=== PATIENT | female | born 1975 | race Caucasian/White ===

== ENCOUNTER 2016-11-29 13:33 | Emergency (ER) | payer MEDICAID ==
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
[2016-11-29] MEDS ORDERED: LORAZEPAM 0.5 MG TABLET PO ONE (14:48)
[2016-11-29 16:14] LABS: HEMATOCRIT 45.7 % (36.0-47.0); HEMOGLOBIN 15.4 g/dL (12.0-15.5); HGB HCT DIFFERENCE 0.5; MEAN CORPUSCULAR HEMOGLOBIN 27.9 pg (27.0-33.4); MEAN CORPUSCULAR HGB CONC 33.6 g/dL (32.0-36.0); MEAN CORPUSCULAR VOLUME 83 fl (80-97); RED CELL DISTRIBUTION WIDTH 13.9 % (11.5-14.0); WHITE BLOOD COUNT 21.1 10^3/uL (4.0-10.5)
[2016-11-29 16:34] LABS: BASOPHILS % (MANUAL) 1 % (0-2); EOSINOPHILS % (MANUAL) 1 % (0-6); LYMPHOCYTES % (MANUAL) 21 % (13-45); TOTAL CELLS COUNTED 100
[2016-11-29 16:35] LABS: PLATELET CLUMPS PRESENT; RBC MORPHOLOGY COMMENT NORMO-CYTIC/CHROMIC
[2016-11-29 16:37] LABS: ALANINE AMINOTRANSFERASE 42 U/L (9-52); ALBUMIN 5.3 g/dL (3.5-5.0); ALCOHOL < 10 mg/dL (NONE DETECTED); ALKALINE PHOSPHATASE 108 U/L (38-126); ANION GAP 18 (5-19); ASPARTATE AMINO TRANSFERASE 44 U/L (14-36); BILIRUBIN,TOTAL 1.2 mg/dL (0.2-1.3); BLOOD UREA NITROGEN 19 mg/dL (7-20); CALCIUM 10.5 mg/dL (8.4-10.2); CARBON DIOXIDE 19 mmol/L (22-30); CHLORIDE 103 mmol/L (98-107); CREATININE RESULT 1.05 mg/dL (0.52-1.25); GLUCOSE 124 mg/dL (75-110); POTASSIUM 4.3 mmol/L (3.6-5.0); SODIUM 139.7 mmol/L (137-145); TOTAL PROTEIN 9.3 g/dL (6.3-8.2)
[2016-11-29 17:24] LABS: APPEARANCE,URINE TURBID; BILIRUBIN,URINE NEGATIVE (NEGATIVE); GLUCOSE, URINE NEGATIVE (NEGATIVE); KETONES,URINE 20 mg/dL (NEGATIVE); LEUKOCYTE ESTERASE,URINE NEGATIVE (NEGATIVE); NITRITE,URINE NEGATIVE (NEGATIVE); PROTEIN,URINE 100 mg/dL (NEGATIVE); URINE SPECIFIC GRAVITY 1.027; UROBILINOGEN,URINE NEGATIVE mg/dL (<2.0)
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
[2016-11-29 17:44] LABS: URINE BARBITURATES SCREEN NEGATIVE; URINE METHADONE SCREEN NEGATIVE; URINE OPIATES LOW NEGATIVE; URINE PHENCYCLIDINE SCREEN NEGATIVE
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
[2016-11-29 18:00] VITALS: BP 137/88
--- NOTE | 2016-11-29 21:53 | EKG REPORT ---
SEVERITY:- NORMAL ECG - SINUS RHYTHM : Confirmed by: Sarah Van 29-Nov-2016 21:52:13
== END 2016-11-29 18:07 | disposition home or self-care (01) ==
LOC: ER 13:33
DX: F41.9 Anxiety disorder, unspecified (principal); F17.200 Nicotine dependence, unspecified, uncomplicated; Z88.5 Allergy status to narcotic agent; Z88.6 Allergy status to analgesic agent; Z88.8 Allergy status to other drugs, medicaments and biological substances
CPT/HCPCS: 36415; 80053; 80307; 81001; 84703; 85025; 93005; 93010; 99284

== ENCOUNTER 2017-07-05 13:49 | Emergency (ER) | payer MEDICAID, OTHER ==
[2017-07-05 14:24] VITALS: BP 135/86
[2017-07-05] MEDS ORDERED: PROCHLORPERAZINE MALEATE 10 MG TABLET PO ONE (14:42)
[2017-07-05] MEDS ORDERED: PREDNISONE 20 MG TABLET PO ONE (14:42)
[2017-07-05] MEDS ORDERED: DIPHENHYDRAMINE HCL 25 MG CAPSULE PO ONE (14:42)
--- NOTE | 2017-07-05 14:52 | ER Document Report ---
HPI - HPI Patient complains to provider of: migraine Onset: Other Onset/Duration: Sudden Quality of pain: Throbbing Severity: Severe Pain Level: 5 Context: Patient states she has had a headache for 3 days with intermittent vomiting. Has had similar episodes in the past as she has a history of migraines. This is not the worst headache she has ever had. Patient received a phone call from her son's ride home from school stating that she would not be able to pick him up. Patient states she has Aleve at this time, and after discussing this with her, she agrees to some oral medications prior to being discharged. Associated Symptoms: Headache, Nausea, Vomiting Exacerbated by: Denies Relieved by: Denies Similar symptoms previously: Yes Recently seen / treated by doctor: No - ROS ROS below otherwise negative: Yes Systems Reviewed and Negative: Yes All other systems reviewed and negative - CONSTITUTIONAL Constitutional: DENIES: Fever - EENT EENT: DENIES: Congestion - NEURO Neurology: REPORTS: Headache - CARDIOVASCULAR Cardiovascular: DENIES: Chest pain - RESPIRATORY Respiratory: DENIES: Trouble Breathing - GASTROINTESTINAL Gastrointestinal: REPORTS: Nausea, Patient vomiting. DENIES: Abdominal Pain - REPRODUCTIVE Reproductive: DENIES: : - MUSCULOSKELETAL Musculoskeletal: DENIES: Extremity pain - DERM Skin Color: Normal Past Medical History - General Information source: Patient - Social History Smoking Status: Current Every Day Smoker Frequency of alcohol use: None Drug Abuse: None Lives with: Family Family History: Reviewed & Not Pertinent, Hypertension Patient has suicidal ideation: No Patient has homicidal ideation: No Neurological Medical History: Reports: Hx Migraine Psychiatric Medical History: Reports: Hx Anxiety, Hx Attention Deficit Hyperactivity Disorder, Hx Bipolar Disorder, Hx Depression Infectious Medical History: Denies: Hx Hepatitis Past Surgical History: Reports: Hx Appendectomy, Hx Cholecystectomy, Hx Gynecologic Surgery - Laparoscopy x2 - Immunizations Immunizations up to date: Yes Hx Diphtheria, Pertussis, Tetanus Vaccination: Yes - unk Vertical Provider Document - CONSTITUTIONAL Agree With Documented VS: Yes Exam Limitations: No Limitations General Appearance: WD/WN, Mild Distress - INFECTION CONTROL TRAVEL OUTSIDE OF THE U.S. IN LAST 30 DAYS: No - HEENT HEENT: Atraumatic, Normal ENT Exam, Normocephalic, PERRLA - NECK Neck: Normal Inspection - RESPIRATORY Respiratory: Breath Sounds Normal, No Respiratory Distress O2 Sat by Pulse Oximetry: 97 - CARDIOVASCULAR Cardiovascular: Regular Rate, Regular Rhythm - GI/ABDOMEN Gastrointestinal: Abdomen Soft, Abdomen Tender - Mild epigastric tenderness on palpation - MUSCULOSKELETAL/EXTREMETIES Musculoskeletal/Extremeties: MAEW - NEURO Level of Consciousness: Awake, Alert, Appropriate Notes: Cranial nerves grossly intact - DERM Integumentary: Warm, Dry Course - Vital Signs Vital signs: Temp Pulse Resp BP Pulse Ox 97.8 F 94 14 135/86 H 97 07/05/17 14:22 07/05/17 14:22 07/05/17 14:22 07/05/17 14:07/05/17 14:22 Discharge - Discharge Clinical Impression: Migraine Qualifiers: Migraine type: unspecified Status migrainosus presence: without status migrainosus Intractability: not intractable Qualified Code(s): G43.909 - Migraine, unspecified, not intractable, without status migrainosus Condition: Good Disposition: HOME, SELF-CARE Instructions: Antinausea Medication ([facility]), Headache ([facility]) Additional Instructions: You have been given oral medications for your headache as you have to leave and pick her son up. Return if not relieved with medications given or if symptoms worsen. Prescriptions: Ondansetron [Zofran Odt 4 mg Tablet] 1 - 2 tab PO Q4HP PRN #10 tab.rapdis PRN Reason:
== END 2017-07-05 15:08 | disposition home or self-care (01) ==
LOC: ER 13:49
DX: G43.909 Migraine, unspecified, not intractable, without status migrainosus (principal); R11.2 Nausea with vomiting, unspecified; F17.200 Nicotine dependence, unspecified, uncomplicated; Z90.49 Acquired absence of other specified parts of digestive tract
CPT/HCPCS: 99283; J3490; J7512; S0183

== ENCOUNTER 2017-11-11 19:40 | Inpatient (IN) | payer SELFPAY ==
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
[2017-11-11 21:51] LABS: ABSOLUTE BASOPHILS # (AUTO) 0.1 10^3/uL (0.0-0.2); ABSOLUTE LYMPHOCYTES (AUTO) 5.6 10^3/uL (0.5-4.7); ABSOLUTE MONOCYTES (AUTO) 0.8 10^3/uL (0.1-1.4); ABSOLUTE NEUT (AUTO) 9.7 10^3/uL (1.7-8.2); BASOPHILS % (AUTO) 0.3 % (0-2); EOSINOPHILS % (AUTO) 0.3 % (0-6); HEMATOCRIT 43.7 % (36.0-47.0); HEMOGLOBIN 14.8 g/dL (12.0-15.5); LYMPHOCYTES % (AUTO) 34.4 % (13-45); MEAN CORPUSCULAR HEMOGLOBIN 28.6 pg (27.0-33.4); MEAN CORPUSCULAR HGB CONC 33.8 g/dL (32.0-36.0); MEAN CORPUSCULAR VOLUME 84 fl (80-97); MONOCYTES % (AUTO) 5.1 % (3-13); PLATELET COUNT 357 10^3/uL (150-450); RED BLOOD COUNT 5.17 10^6/uL (3.72-5.28); RED CELL DISTRIBUTION WIDTH 13.1 % (11.5-14.0); SEGMENTED NEUTROPHILS % (AUTO) 59.9 % (42-78); TOTAL CELLS COUNTED % (AUTO) 100 %; WHITE BLOOD COUNT 16.2 10^3/uL (4.0-10.5)
[2017-11-11 22:07] LABS: APPEARANCE,URINE CLEAR; BILIRUBIN,URINE NEGATIVE (NEGATIVE); COLOR,URINE STRAW; GLUCOSE, URINE NEGATIVE (NEGATIVE); KETONES,URINE NEGATIVE (NEGATIVE); LEUKOCYTE ESTERASE,URINE NEGATIVE (NEGATIVE); NITRITE,URINE NEGATIVE (NEGATIVE); PROTEIN,URINE NEGATIVE (NEGATIVE); URINE SPECIFIC GRAVITY 1.002; UROBILINOGEN,URINE NEGATIVE mg/dL (<2.0)
[2017-11-11 22:14] LABS: ALANINE AMINOTRANSFERASE 27 U/L (9-52); ALKALINE PHOSPHATASE 88 U/L (38-126); ANION GAP 15 (5-19); ASPARTATE AMINO TRANSFERASE 22 U/L (14-36); BILIRUBIN,DIRECT 0.3 mg/dL (0.0-0.4); BILIRUBIN,TOTAL 0.5 mg/dL (0.2-1.3); BLOOD UREA NITROGEN 5 mg/dL (7-20); CALCIUM 10.3 mg/dL (8.4-10.2); CARBON DIOXIDE 24 mmol/L (22-30); CHLORIDE 106 mmol/L (98-107); GLUCOSE 101 mg/dL (75-110); SODIUM 145.1 mmol/L (137-145); TOTAL PROTEIN 8.4 g/dL (6.3-8.2)
[2017-11-11 22:16] LABS: ACETAMINOPHEN < 10 ug/mL (10-30); ALCOHOL < 10 mg/dL (NONE DETECTED); SALICYLATE < 1.0 mg/dL (2.0-20.0)
[2017-11-11 22:28] LABS: URINE AMPHETAMINES SCREEN UNCONFIRMED POSITIVE; URINE BARBITURATES SCREEN NEGATIVE; URINE BENZODIAZEPINES SCREEN NEGATIVE; URINE COCAINE SCREEN NEGATIVE; URINE MARIJUANA (THC) SCREEN UNCONFIRMED POSITIVE; URINE METHADONE SCREEN NEGATIVE; URINE PHENCYCLIDINE SCREEN NEGATIVE
[2017-11-12 00:16] LABS: ARTERIAL BLOOD BASE EXCESS -0.9 mmol/L; ARTERIAL BLOOD H2CO3 1.12 mmol/L (1.05-1.35); ARTERIAL BLOOD HCO3 23.3 mmol/L (20-26); ARTERIAL BLOOD O2 SATURATION 96.8 % (94-98); ARTERIAL BLOOD PCO2 37.2 mmHg (35-45); ARTERIAL BLOOD PH 7.41 (7.35-7.45); ARTERIAL BLOOD PO2 87.2 mmHg (80-100); ARTERIAL BLOOD TOTAL CO2 24.4 mmol/L (21-25)
[2017-11-12 00:17] LABS: ARTERIAL BLOOD FIO2 2L
[2017-11-12] MEDS ORDERED: GLUCAGON,HUMAN RECOMB 1 MG INJ SUBCUT PRN (00:54)
[2017-11-12] MEDS ORDERED: DEXTROSE 50%-WATER 25 GM/50 ML DISP.SYRIN IV PRN ×2 (00:54)
[2017-11-12] MEDS ORDERED: DEXTROSE 5%-LACTATED RINGERS 1,000 ML IV PRN (00:54)
[2017-11-12] MEDS ORDERED: DEXTROSE 40% GEL 15 GM TUBE PO PRN ×2 (00:54)
--- NOTE | 2017-11-12 01:23 | PDOC H&P ---
History of Present Illness Admission Date/PCP: 11/12/17 00:39 Patient complains of: Taking medicine in order not to go to group home History of Present Illness: ROSANA ORTIZ is a 42 year old female who has been remanded to group home. Apparently she took an excess of clonidine tablets. She was brought to the emergency room due to lethargy. Upon arrival here patient was lethargic but arousable. Arterial blood gases were acceptable without hypercapnia. Electrocardiogram showed the development of AV block suggestive of clonidine overdose. Patient was then admitted to our care and transferred to our intensive care unit. It should be noted that the patient says she takes Adderall at home as part of her therapy for PTSD Past Medical History Cardiac Medical History: Reports: None Pulmonary Medical History: Reports: None EENT Medical History: Reports: None Neurological Medical History: Reports: Migraine Endocrine Medical History: Reports: None Renal/ Medical History: Reports: None Malignancy Medical History: Reports: None GI Medical History: Reports: None Denies: Hepatitis, Hiatal Hernia Musculoskeltal Medical History: Reports: None Psychiatric Medical History: Reports: Attention Deficit Hyperactivity Disorder, Bipolar Disorder, Depression Hematology: Denies: Anemia, Sickle Cell Disease Past Surgical History Past Surgical History: Reports: Appendectomy, Cholecystectomy Denies: Amputation, Mastectomy, Pacemaker Social History Lives with: Alone Smoking Status: Current Every Day Smoker - Advance Directive Resuscitation Status: Full Code Family History Family History: Reviewed & Not Pertinent, Hypertension Parental Family History Reviewed: No - Patient lethargic Children Family History Reviewed: No - Patient lethargic Sibling(s) Family History Reviewed.: No - Patient lethargic Medication/Allergy Home Medications: Doxycycline Hyclate 100 mg PO BID #20 capsule 01/01/16 Oxycodone HCl [Oxycodone HCl 10 MG Tablet] 1 tab PO Q6H PRN #15 tablet 01/01/16 Oxycodone HCl 5 mg PO Q6 #12 tablet 01/08/16 Albuterol Sulfate [Proair HFA Inhalation Aerosol 8.5 gm MDI] 2 puff IH Q4H PRN # 1 mdi 03/26/16 Azithromycin [Zithromax 250 mg Tablet] 250 mg PO ASDIR PRN #6 tablet 03/26/16 Hydroxyzine Pamoate [Vistaril 25 mg Capsule] 25 mg PO DAILY #4 capsule 11/29/16 Ondansetron [Zofran Odt 4 mg Tablet] 1 - 2 tab PO Q4HP PRN #10 tab.rapdis Allergies/Adverse Reactions: acetaminophen [From Vicodin] Allergy (Verified 07/05/17 14:22) aspirin [Aspirin] Allergy (Verified 07/05/17 14:22) hydrocodone bitartrate [From Vicodin] Allergy (Verified 07/05/17 14:22) risperidone [From Risperdal] Allergy (Verified 07/05/17 14:22) Review of Systems ROS unobtainable: Due to mental status Physical Exam Vital Signs: Temp Pulse Resp BP Pulse Ox 97.6 F 81 15 108/83 98 11/11/17 19:51 11/11/17 19:51 11/12/17 00:18 11/12/17 00:18 11/12/17 00:18 General appearance: PRESENT: no acute distress, cooperative - When aroused Head exam: PRESENT: atraumatic, normocephalic Eye exam: PRESENT: conjunctiva pink, EOMI, PERRLA. ABSENT: scleral icterus Ear exam: PRESENT: normal external ear exam Neck exam: ABSENT: carotid bruit, JVD, lymphadenopathy, thyromegaly Respiratory exam: PRESENT: clear to auscultation lyle. ABSENT: rales, rhonchi, wheezes Cardiovascular exam: PRESENT: RRR. ABSENT: diastolic murmur, rubs, systolic murmur GI/Abdominal exam: PRESENT: normal bowel sounds, soft. ABSENT: distended, guarding, mass, organolmegaly, rebound, tenderness Rectal exam: PRESENT: deferred Musculoskeletal exam: PRESENT: normal inspection Neurological exam: PRESENT: altered, CN II-XII grossly intact Skin exam: PRESENT: dry, intact, warm. ABSENT: cyanosis, rash Results Laboratory Results: 11/11/17 11/11/17 11/11/17 21:37 21:37 21:37 WBC 16.2 H Hgb 14.8 Hct 43.7 ABG pH ABG pCO2 ABG pO2 ABG HCO3 Sodium 145.1 H Potassium 4.0 Chloride 106 Carbon Dioxide 24 Anion Gap 15 BUN 5 L Creatinine 0.68 Glucose 101 Calcium 10.3 H AST 22 ALT 27 Alkaline Phosphatase 88 Total Protein 8.4 H Albumin 5.0 Ur Leukocyte Esterase NEGATIVE Urine WBC (Auto) 0 Salicylates < 1.0 L Acetaminophen < 10 L Ur Amphetamines Screen U Marijuana (THC) Screen Serum Alcohol < 10 11/11/17 11/12/17 21:37 00:04 WBC Hgb Hct ABG pH 7.41 ABG pCO2 37.2 ABG pO2 87.2 ABG HCO3 23.3 Sodium Potassium Chloride Carbon Dioxide Anion Gap BUN Creatinine Glucose Calcium AST ALT Alkaline Phosphatase Total Protein Albumin Ur Leukocyte Esterase Urine WBC (Auto) Salicylates Acetaminophen Ur Amphetamines Screen UNCONFIRMED POSITIVE U Marijuana (THC) Screen UNCONFIRMED POSITIVE Serum Alcohol EKG Comments: First-degree AV block Assessment & Plan - Diagnosis (1) Accidental poisoning by agents affecting cardiovascular system Qualifiers: Encounter type: initial encounter Qualified Code(s): T46.901A - Poisoning by unspecified agents primarily affecting the cardiovascular system, accidental (unintentional), initial encounter Is this a current diagnosis for this admission?: Yes (2) Clonidine overdose Qualifiers: Encounter type: initial encounter Injury intent: accidental or unintentional Qualified Code(s): T46.5X1A - Poisoning by other antihypertensive drugs, accidental (unintentional), initial encounter Is this a current diagnosis for this admission?: Yes (3) Attention deficit disorder (ADD) in adult Is this a current diagnosis for this admission?: Yes (4) Hypotension Qualifiers: Hypotension type: hypotension due to drug Qualified Code(s): I95.2 - Hypotension due to drugs Is this a current diagnosis for this admission?: Yes - Time Time Spent: 30 to 50 Minutes Critical Time spent with patient: 15-24 minutes Medications reviewed and adjusted accordingly: Yes - Inpatient Certification Based on my medical assessment, after consideration of the patient's comorbidities, presenting symptoms, or acuity I expect that the services needed warrant INPATIENT care.: Yes I certify that my determination is in accordance with my understanding of Medicare's requirements for reasonable and necessary INPATIENT services [42 CFR 412.3e].: Yes Medical Necessity: Need Close Monitoring Due to Risk of Patient Decompensation, Need For IV Fluids, Need For Continuous Telemetry Monitoring - Plan Summary Plan Summary: Her clinical picture is consistent with poisoning due to clonidine. Apparently this was unintentional. We will provide supportive care for her. She will be admitted to intensive care in case it may be necessary to intubate her or to start pressor agents. Apparently her amphetamines are prescribed and do not represent substance abuse. Patient will receive DVT prophylaxis with low molecular weight heparin Anticipated length of stay is greater than 2 midnights
[2017-11-12] MEDS: NORMAL SALINE 1000 ML 1,000 ML IV PRN ×2 (03:42→06:30)
[2017-11-12] MEDS ORDERED: ENOXAPARIN SODIUM INJ 40 MG/0.4 ML DISP.SYRIN SUBCUT SCH (10:00)
[2017-11-12] MEDS ORDERED: DOCUSATE SODIUM 100 MG CAPSULE PO SCH (10:00)
[2017-11-12] MEDS ORDERED: FAMOTIDINE 20 MG TABLET PO SCH (10:00)
[2017-11-12 11:49] VITALS: BP 109/67
--- NOTE | 2017-11-12 15:25 | PDOC DISCHARGE SUMMARY ---
General - Admit/Disc Date/PCP Admission Date/Primary Care Provider: 11/12/17 00:39 Discharge Date: 11/12/17 - Discharge Diagnosis (1) Encephalopathy acute Is this a current diagnosis for this admission?: Yes (3) Attention deficit disorder (ADD) in adult Is this a current diagnosis for this admission?: Yes (4) Hypotension Is this a current diagnosis for this admission?: Yes (5) AV block Is this a current diagnosis for this admission?: Yes - Additional Information Resuscitation Status: Full Code Home Medications: Clonazepam [Klonopin 1 mg Tablet] 1 mg PO TID 11/12/17 Dextroamphetamine/Amphetamine [Adderall Xr 30 mg Capsule] 30 mg PO DAILY Escitalopram Oxalate [Lexapro] 20 mg PO DAILY 11/12/17 Quetiapine Fumarate [Seroquel] 300 mg PO TID 11/12/17 Zolpidem Tartrate [Ambien] 10 mg PO QHS 11/12/17 History of Present Illness History of Present Illness: ROSANA ORTIZ is a 42 year old female who has been [facility] jail[facility] due to marijuana position. Apparently she took an excess of clonidine tablets. She was brought to the emergency room due to lethargy. Upon arrival here patient was lethargic but arousable. Arterial blood gases were acceptable without hypercapnia. Electrocardiogram showed the development of AV block suggestive of clonidine overdose. Patient was then admitted under the hospitalist service. Hospital Course Hospital Course: Patient was admitted under the hospitalist service. Upon further inquiring, she stated that she took an extra dose of Seroquel because she was going to senior care and wanted to sleep. She is currently under stress because the anniversary of her daughter is coming soon on November 27. She denied being suicidal. Patient denies taking any medications for blood pressure. She is mandated to go to senior care during the weekends because of marijuana position on several locations. Patient had remained stable while in emergency room. Initial concerns of an AV block are easily explain because of patient taking Seroquel on a regular basis. Since patient was no longer drowsy and blood pressure was stable, opted to proceed to discharge patient. Physical Exam Vital Signs: Temp Pulse Resp BP Pulse Ox 97.6 F 81 14 107/70 98 11/11/17 19:51 11/11/17 19:51 11/12/17 08:03 11/12/17 08:03 11/12/17 08:03 Intake & Output 11/11/17 11/12/17 11/13/17 06:59 06:59 06:59 Weight 63.503 kg General appearance: PRESENT: no acute distress, cooperative, obese Head exam: PRESENT: atraumatic, normocephalic Eye exam: PRESENT: EOMI, PERRLA Ear exam: PRESENT: normal external ear exam Mouth exam: PRESENT: moist, neck supple Neck exam: PRESENT: full ROM. ABSENT: JVD, lymphadenopathy, tenderness, thyromegaly Respiratory exam: PRESENT: clear to auscultation lyle Cardiovascular exam: PRESENT: RRR. ABSENT: diastolic murmur, systolic murmur Vascular exam: PRESENT: normal capillary refill GI/Abdominal exam: PRESENT: normal bowel sounds, soft. ABSENT: tenderness Extremities exam: PRESENT: full ROM. ABSENT: clubbing, pedal edema Musculoskeletal exam: PRESENT: ambulatory, full ROM Neurological exam: PRESENT: alert, awake, oriented to person, oriented to place , oriented to time, oriented to situation, CN II-XII grossly intact Psychiatric exam: PRESENT: appropriate affect, normal mood Skin exam: PRESENT: intact, normal color Plan Discharge Plan: Discharge home Time Spent: Less than 30 Minutes
--- NOTE | 2017-11-13 12:03 | EKG REPORT ---
SEVERITY:- ABNORMAL ECG - ATRIAL FIBRILLATION : Confirmed by: Kirti Esqueda MD 13-Nov-2017 12:02:21
--- NOTE | 2017-11-16 08:13 | EKG REPORT ---
SEVERITY:- BORDERLINE ECG - SINUS RHYTHM POOR R WAVE PROGRESSION ANTEROSEPTAL LEADS : Confirmed on behalf of: Gallo Womack MD 16-Nov-2017 08:12:28
== END 2017-11-12 11:56 | disposition home or self-care (01) | DRG 917 ==
LOC: ER 19:40 → EH 11-12 00:39
PROVIDERS: ADMIT Internal Medicine; ATTEND Internal Medicine
DX: T46.5X1A Poisoning by other antihypertensive drugs, accidental (unintentional), initial encounter (principal); G93.40 Encephalopathy, unspecified; F98.8 Other specified behavioral and emotional disorders with onset usually occurring in childhood and adolescence; I95.9 Hypotension, unspecified; I44.30 Unspecified atrioventricular block; F31.9 Bipolar disorder, unspecified; G43.909 Migraine, unspecified, not intractable, without status migrainosus; F17.210 Nicotine dependence, cigarettes, uncomplicated; I95.2 Hypotension due to drugs; F41.9 Anxiety disorder, unspecified; R47.81 Slurred speech; Z60.2 Problems related to living alone; Z79.899 Other long term (current) drug therapy; Z90.49 Acquired absence of other specified parts of digestive tract; Z88.6 Allergy status to analgesic agent; Z88.8 Allergy status to other drugs, medicaments and biological substances; Z82.49 Family history of ischemic heart disease and other diseases of the circulatory system
CPT/HCPCS: 36415; 80053; 80307; 81001; 81025; 82803; 85025; 93005; 93010; 99291; J7030

== ENCOUNTER 2018-01-18 09:17 | Emergency (ER) | payer SELFPAY ==
[2018-01-18] MEDS ORDERED: DICYCLOMINE HCL 20 MG TABLET PO ONE (10:12)
[2018-01-18] MEDS ORDERED: ONDANSETRON 4 MG TAB.RAPDIS PO ONE (10:12)
--- NOTE | 2018-01-18 10:15 | ER Document Report ---
ED Medical Screen (RME) - General Chief Complaint: Vomiting/Diarrhea Stated Complaint: NAUSEA/VOMITING/DIARRHEA Time Seen by Provider: 01/18/18 10:11 Notes: RME DISCLOSURE I have seen this patient as part of a Rapid Medical Evaluation and, if applicable, placed any initially appropriate orders. The patient will be seen and fully evaluated, including a full history and physical exam, by a provider ( in Main ED or Fast Track) when a room becomes available. 42-year-old female here with multiple complaints: DIARRHEA (ACUTE) Started last night, multiple episodes, watery. No known sick contacts. No fevers. VOMITING and RIB MASS (CHRONIC) Ongoing for the past 1 year. She states that she "vomits all the time". She no longer has a gallbladder. She has been smoking marijuana for the vomiting. She also reports that she has a "something pops out of my stomach" on the right side just underneath her rib cage. States that this happens frequently especially when she is stressed out. She does not currently have this mass. TRAVEL OUTSIDE OF THE [place] IN LAST 30 DAYS: No - Related Data Allergies/Adverse Reactions: acetaminophen [From Vicodin] Allergy (Verified 01/18/18 09:23) aspirin [Aspirin] Allergy (Verified 01/18/18 09:23) hydrocodone bitartrate [From Vicodin] Allergy (Verified 01/18/18 09:23) risperidone [From Risperdal] Allergy (Verified 01/18/18 09:23) Past Medical History Neurological Medical History: Reports: Hx Migraine Renal/ Medical History: Denies: Hx Peritoneal Dialysis GI Medical History: Denies: Hx Hepatitis, Hx Hiatal Hernia, Hx Ulcer Psychiatric Medical History: Reports: Hx Anxiety, Hx Attention Deficit Hyperactivity Disorder, Hx Bipolar Disorder, Hx Depression Infectious Medical History: Denies: Hx Hepatitis Past Surgical History: Reports: Hx Appendectomy, Hx Cholecystectomy, Hx Gynecologic Surgery - Laparoscopy x2. Denies: Hx Mastectomy, Hx Open Heart Surgery, Hx Pacemaker - Immunizations Immunizations up to date: Yes Hx Diphtheria, Pertussis, Tetanus Vaccination: Yes - unk Physical Exam - Vital signs Vitals: Temp Pulse Resp BP Pulse Ox 97.9 F 90 18 148/86 H 97 01/18/18 09:27 01/18/18 09:27 01/18/18 09:27 01/18/18 09:27 01/18/18 09:27 Course - Vital Signs Vital signs: Temp Pulse Resp BP Pulse Ox 97.9 F 90 18 148/86 H 97 01/18/18 09:27 01/18/18 09:27 01/18/18 09:27 01/18/18 09:27 01/18/18 09:27
[2018-01-18] MEDS ORDERED: HALOPERIDOL LACTATE INJ 5 MG/1 ML VIAL IV ONE (11:13)
--- NOTE | 2018-01-18 11:13 | ER Document Report ---
ED General - General Chief Complaint: Vomiting/Diarrhea Stated Complaint: NAUSEA/VOMITING/DIARRHEA Time Seen by Provider: 01/18/18 10:11 Notes: 42-year-old lady with a history of cholecystectomy and daily marijuana smoking presents with "it feels like someone sticking a fist up on her right rib cage intermittently" she describes it as a mass associated with nausea vomiting. Last night she had a bout of vomiting and diarrhea which is improved today but is still described as moderate although she has not vomited or had diarrhea in the ER. Smokes marijuana daily. Has not tried quitting. No fevers or chills. No antibiotics or foreign travel. TRAVEL OUTSIDE OF THE [place] IN LAST 30 DAYS: No - Related Data Allergies/Adverse Reactions: acetaminophen [From Vicodin] Allergy (Verified 01/18/18 09:23) aspirin [Aspirin] Allergy (Verified 01/18/18 09:23) hydrocodone bitartrate [From Vicodin] Allergy (Verified 01/18/18 09:23) risperidone [From Risperdal] Allergy (Verified 01/18/18 09:23) Past Medical History - Social History Smoking Status: Current Every Day Smoker Chew tobacco use (# tins/day): No Smoking Education Provided: Yes - The patient ED visit today was directly related to their abuse of tobacco. Frequency of alcohol use: Rare Drug Abuse: Marijuana Family History: Reviewed & Not Pertinent, Hypertension Patient has suicidal ideation: No Patient has homicidal ideation: No Neurological Medical History: Reports: Hx Migraine Renal/ Medical History: Denies: Hx Peritoneal Dialysis GI Medical History: Denies: Hx Hepatitis, Hx Hiatal Hernia, Hx Ulcer Psychiatric Medical History: Reports: Hx Anxiety, Hx Attention Deficit Hyperactivity Disorder, Hx Bipolar Disorder, Hx Depression Infectious Medical History: Denies: Hx Hepatitis Past Surgical History: Reports: Hx Appendectomy, Hx Cholecystectomy, Hx Gynecologic Surgery - Laparoscopy x2. Denies: Hx Mastectomy, Hx Open Heart Surgery, Hx Pacemaker - Immunizations Immunizations up to date: Yes Hx Diphtheria, Pertussis, Tetanus Vaccination: Yes - unk Review of Systems - Review of Systems Notes: REVIEW OF SYSTEMS GEN: Denies fever, chills, weight loss ENT: Denies sore throat, nasal discharge, ear pain EYES: Denies blurry vision, eye pain, discharge CV: Denies chest pain, palpitations, edema RESP: Denies cough, shortness of breath, wheezing GI: Vomiting and diarrhea Musculoskeletal: Denies enies joint pain/swelling, edema, SKIN: Denies rash, skin lesions LYMPH: Denies swollen glands/lymph nodes NEURO: Denies headache, focal weakness or numbness, dizziness PSYCH: Denies depression, suicidal or homicidal ideation PHYSICAL EXAMINATION General: No acute distress, well-nourished Head: Atraumatic, normocephalic ENT: Mouth normal, oropharynx moist, no exudates or tonsillar enlargement Eyes: Conjunctiva normal, pupils equal, lids normal Neck: No JVD, supple, no guarding CVS: Normal rate, regular rhythm, no murmurs Resp: No resp distress, equal and normal breath sounds bilaterally GI: Nondistended, soft, no tenderness to palpation, no rebound or guarding Ext: No deformities, no edema, normal range of motion in upper and lower ext Back: No CVA or midline TTP Skin: No rash, warm Lymphatic: No lymphadeopathy noted Neuro: Awake, alert. Face symmetric. GCS 15. Physical Exam - Vital signs Vitals: Temp Pulse Resp BP Pulse Ox 97.9 F 90 18 148/86 H 97 01/18/18 09:27 01/18/18 09:27 01/18/18 09:27 01/18/18 09:27 01/18/18 09:27 Course - Re-evaluation Re-evalutation: 01/18/18 11:13 Recurrent vomiting diarrhea Marijuana smoking Abdominal tenderness Wilson's or right lower quadrant tenderness. History of colostomy. Suspect gastritis gastroenteritis or cyclic vomiting. Haldol Benadryl, lab workup, no imaging is indicated at this time. 01/18/18 13:31 Reassessed at 1:20 PM. Nontender. White count is significantly elevated however so I will obtain a CT. 01/18/18 14:21 CT negative. Tolerated p.o. Discharge home with [facility]. Counseled on marijuana use and cannabinoid hyperemesis as well as cyclic vomiting. I have discussed with the patient there likely diagnosis, aftercare plan, follow-up plans and my usual and customary return precautions. They verbalized understanding of this. - Vital Signs Vital signs: Temp Pulse Resp BP Pulse Ox 97.9 F 90 18 148/86 H 97 01/18/18 09:27 01/18/18 09:27 01/18/18 09:27 01/18/18 09:27 01/18/18 09:27 - Laboratory Result Diagrams: 01/18/18 11:51 01/18/18 11:51 Laboratory results interpreted by me: 01/18/18 01/18/18 10:25 11:51 WBC 17.6 H RDW 14.2 H Absolute Neutrophils 11.3 H Absolute Lymphocytes 5.5 H Urine Protein 30 H Urine Ketones 20 H - Diagnostic Test Radiology reviewed: Image reviewed, Reports reviewed Discharge - Discharge Clinical Impression: Nausea vomiting and diarrhea Condition: Good Disposition: HOME, SELF-CARE Instructions: Antinausea Medication ([facility]) Additional Instructions: Is very likely that your recurrent episodes of vomiting are due to marijuana use. Please slow down and stop her marijuana use and this may result in resolution of her symptoms. Prescriptions: Ondansetron [Zofran Odt 4 mg Tablet] 1 - 2 tab PO Q4H PRN #15 tab.rapdis PRN Reason: For Nausea/Vomiting
[2018-01-18 12:03] LABS: ABSOLUTE BASOPHILS # (AUTO) 0.2 10^3/uL (0.0-0.2); ABSOLUTE LYMPHOCYTES (AUTO) 5.5 10^3/uL (0.5-4.7); ABSOLUTE MONOCYTES (AUTO) 0.6 10^3/uL (0.1-1.4); ABSOLUTE NEUT (AUTO) 11.3 10^3/uL (1.7-8.2); EOSINOPHILS % (AUTO) 0.1 % (0-6); HEMATOCRIT 43.9 % (36.0-47.0); MEAN CORPUSCULAR HEMOGLOBIN 28.5 pg (27.0-33.4); MEAN CORPUSCULAR HGB CONC 34.1 g/dL (32.0-36.0); MEAN CORPUSCULAR VOLUME 84 fl (80-97); MONOCYTES % (AUTO) 3.6 % (3-13); PLATELET COUNT 355 10^3/uL (150-450); RED BLOOD COUNT 5.26 10^6/uL (3.72-5.28); RED CELL DISTRIBUTION WIDTH 14.2 % (11.5-14.0); SEGMENTED NEUTROPHILS % (AUTO) 64.3 % (42-78); TOTAL CELLS COUNTED % (AUTO) 100 %; WHITE BLOOD COUNT 17.6 10^3/uL (4.0-10.5)
[2018-01-18 12:10] LABS: APPEARANCE,URINE SLIGHTLY-CLOUDY; BILIRUBIN,URINE NEGATIVE (NEGATIVE); COLOR,URINE YELLOW; GLUCOSE, URINE NEGATIVE (NEGATIVE); KETONES,URINE 20 mg/dL (NEGATIVE); LEUKOCYTE ESTERASE,URINE NEGATIVE (NEGATIVE); NITRITE,URINE NEGATIVE (NEGATIVE); PROTEIN,URINE 30 mg/dL (NEGATIVE); URINE SPECIFIC GRAVITY 1.024; UROBILINOGEN,URINE NEGATIVE mg/dL (<2.0)
--- NOTE | 2018-01-18 14:20 | RADIOLOGY REPORT (SQ) ---
EXAM DESCRIPTION: CT ABD/PELVIS WITH IV ONLY COMPLETED DATE/TIME: 01/18/2018 2:01 pm REASON FOR STUDY: ABD PAIN COMPARISON: CT abdomen pelvis 12/22/2015, 11/17/2009 TECHNIQUE: CT scan of the abdomen and pelvis performed using helical scanning technique with dynamic intravenous contrast injection. No oral contrast. Images reviewed with lung, soft tissue, and bone windows. Reconstructed coronal and sagittal MPR images reviewed. Delayed images for evaluation of the urinary system also acquired. All images stored on PACS. All CT scanners at this facility use dose modulation, iterative reconstruction, and/or weight based d osing when appropriate to reduce radiation dose to as low as reasonably achievable (ALARA). [facility]: Dose Right [facility]: CareDose [facility]: Dose Right [facility]: Teradose 4D [facility]: ECO-SAFE CONTRAST TYPE AND DOSE: contrast/concentration: Isovue 370.00 mg/ml; Total Contrast Delivered: 76.0 ml; Total Saline Delivered: 50.1 ml RENAL FUNCTION: None required. The patient is less than 50 years old. RADIATION DOSE: CT Rad equipment meets quality standard of care and radiation dose reduction techniq ues were employed. CTDIvol: NaN - NaN mGy. DLP: 0 mGy-cm.. LIMITATIONS: None. FINDINGS: LOWER CHEST: Small hiatal hernia. Bilateral bandlike atelectasis at the lung bases LIVER: Normal size. No masses. No dilated ducts. SPLEEN: Normal size. No focal lesions. PANCREAS: No masses. No significant calcifications. No adjacent inflammation or peripancreatic fluid collections. Pancreatic duct not dilated. Periampullary duodenum diverticulum is present. GALLBLADDER: Surgically absent ADRENAL GLANDS: No significant masses or asymmetry. RIGHT KIDNEY AND URETER: No solid masses. No significant calcifications. No hydronephrosis or hyd roureter. LEFT KIDNEY AND URETER: No solid masses. 1.5 cm and 1 cm left lower pole renal cortical cysts. No s ignificant calcifications. No hydronephrosis or hydroureter. AORTA AND VESSELS: No aneurysm. No dissection. Renal arteries, SMA, celiac without stenosis. RETROPERITONEUM: No retroperitoneal adenopathy, hemorrhage or masses. BOWEL AND PERITONEAL CAVITY: No masses or inflammatory changes. No free fluid or peritoneal masses. APPENDIX: Surgically absent PELVIS: No mass. No free fluid. Normal bladder. Normal size female pelvic organs. ABDOMINAL WALL: No masses. No hernias. BONES: No significant or acute findings. OTHER: No other significant finding. IMPRESSION: Post cholecystectomy and appendectomy. Otherwise unremarkable study. TECHNICAL DOCUMENTATION: JOB ID: [id number] Quality ID # [id number]: Final reports with documentation of one or more dose reduction techniques (e.g., Au tomated exposure control, adjustment of the mA and/or kV according to patient size, use of iterative reconstruction technique) 2010 [email or web address]- All Rights Reserved Reading location - IP/workstation name: [email or web address]
[2018-01-18 15:26] VITALS: BP 109/79
[2018-01-18 15:26] LABS: ALANINE AMINOTRANSFERASE 24 U/L (9-52); ALBUMIN 4.2 g/dL (3.5-5.0); ALKALINE PHOSPHATASE 91 U/L (38-126); ANION GAP 11 (5-19); ASPARTATE AMINO TRANSFERASE 27 U/L (14-36); BILIRUBIN,DIRECT 0.3 mg/dL (0.0-0.4); BILIRUBIN,TOTAL 0.6 mg/dL (0.2-1.3); BLOOD UREA NITROGEN 10 mg/dL (7-20); CALCIUM 9.6 mg/dL (8.4-10.2); CARBON DIOXIDE 23 mmol/L (22-30); CHLORIDE 103 mmol/L (98-107); GLUCOSE 103 mg/dL (75-110); LIPASE 173.9 U/L (23-300); POTASSIUM 3.9 mmol/L (3.6-5.0); TOTAL PROTEIN 7.2 g/dL (6.3-8.2)
== END 2018-01-18 15:26 | disposition home or self-care (01) ==
LOC: ER 09:17
DX: R19.7 Diarrhea, unspecified (principal); R11.2 Nausea with vomiting, unspecified; F17.200 Nicotine dependence, unspecified, uncomplicated; Z88.6 Allergy status to analgesic agent; Z90.49 Acquired absence of other specified parts of digestive tract
CPT/HCPCS: 99284; 96374; 36415; 83690; 85025; 81025; 80053; 81001; 74177; J3490; S0119; J1630

== ENCOUNTER 2018-04-25 10:49 | Emergency (ER) | payer SELFPAY ==
[2018-04-25 11:16] VITALS: BP 143/80
--- NOTE | 2018-04-25 11:44 | ER Document Report ---
ED GI/ - General Chief Complaint: Abdominal Pain Stated Complaint: BACK PAIN Time Seen by Provider: 04/25/18 11:36 Notes: The patient is a 43-year-old female, past medical history daily marijuana smoker , cholecystectomy, appendectomy, prior overdose attempts presents with several months of abdominal swelling nausea, vomiting and watery diarrhea. She says hot baths help her nausea and vomiting. She was seen in the ER 2 months ago for similar symptoms and had a negative CT scan. She is trying to cut back on her marijuana use, although she is still using daily, but is still having her symptoms. Denies hematemesis, fevers, chest pain, shortness of breath or urinary symptoms. TRAVEL OUTSIDE OF THE [place] IN LAST 30 DAYS: No - Related Data Allergies/Adverse Reactions: acetaminophen [From Vicodin] Allergy (Verified 01/18/18 09:23) aspirin [Aspirin] Allergy (Verified 01/18/18 09:23) hydrocodone bitartrate [From Vicodin] Allergy (Verified 01/18/18 09:23) risperidone [From Risperdal] Allergy (Verified 01/18/18 09:23) Past Medical History - General Information source: Patient - Social History Smoking Status: Current Every Day Smoker Drug Abuse: Marijuana Family History: Reviewed & Not Pertinent, Hypertension Neurological Medical History: Reports: Hx Migraine Renal/ Medical History: Denies: Hx Peritoneal Dialysis GI Medical History: Denies: Hx Hepatitis, Hx Hiatal Hernia, Hx Ulcer Psychiatric Medical History: Reports: Hx Anxiety, Hx Attention Deficit Hyperactivity Disorder, Hx Bipolar Disorder, Hx Depression Infectious Medical History: Denies: Hx Hepatitis Past Surgical History: Reports: Hx Appendectomy, Hx Cholecystectomy, Hx Gynecologic Surgery - Laparoscopy x2. Denies: Hx Mastectomy, Hx Open Heart Surgery, Hx Pacemaker - Immunizations Immunizations up to date: Yes Hx Diphtheria, Pertussis, Tetanus Vaccination: Yes - unk Review of Systems - Review of Systems Notes: REVIEW OF SYSTEMS: CONSTITUTIONAL: -fevers, -chills EENT: -eye pain, -difficulty swallowing, -nasal congestion CARDIOVASCULAR: -chest pain, -syncope. RESPIRATORY: -cough, -SOB GASTROINTESTINAL: -abdominal pain, +nausea, +vomiting, +diarrhea GENITOURINARY: -dysuria, -hematuria MUSCULOSKELETAL: -back pain, -neck pain SKIN: -rash or skin lesions. HEMATOLOGIC: -easy bruising or bleeding. LYMPHATIC: -swollen, enlarged glands. NEUROLOGICAL: -altered mental status or loss of consciousness, -headache, - neurologic symptoms PSYCHIATRIC: -anxiety, -depression. ALL OTHER SYSTEMS REVIEWED AND NEGATIVE. Physical Exam - Vital signs Vitals: Temp Pulse Resp BP Pulse Ox 97.8 F 97 16 143/80 H 04/25/18 11:15 04/25/18 11:15 04/25/18 11:04/25/18 11:04/25/18 11:15 - Notes Notes: PHYSICAL EXAMINATION: GENERAL: Well-appearing, well-nourished and in no acute distress. HEAD: Atraumatic, normocephalic. EYES: Pupils equal round and reactive to light, extraocular movements intact, sclera anicteric, conjunctiva are normal. ENT: nares patent, oropharynx clear without exudates. Moist mucous membranes. NECK: Normal range of motion, supple without lymphadenopathy LUNGS: Breath sounds clear to auscultation bilaterally and equal. No wheezes rales or rhonchi. HEART: Regular rate and rhythm without murmurs ABDOMEN: Soft, nontender, normoactive bowel sounds. No guarding, no rebound. No masses appreciated. EXTREMITIES: Normal range of motion, no pitting or edema. No cyanosis. NEUROLOGICAL: Cranial nerves grossly intact. Normal speech, normal gait. Normal sensory and motor exams. PSYCH: Animated. SKIN: Warm, Dry, normal turgor, no rashes or lesions noted. Course - Re-evaluation Re-evalutation: Pt's symptoms ongoing for several months.. Had a CAT scan completed 2 months ago which did not show any acute abnormalities. Blood work is unremarkable, other than her known leukocytosis, which is lower than prior values today. She is tolerating oral fluids without nausea or vomiting. She does not appear dehydrated. Told her that some of her symptoms may still be related to cannabinoid hyperemesis and to cut out all marijuana. Instructed her to [facility], as there are no acute emergent issues identified at this time. Upon discharge, patient became very upset and started swearing. - Vital Signs Vital signs: Temp Pulse Resp BP Pulse Ox 97.8 F 97 16 143/80 H 04/25/18 11:15 04/25/18 11:04/25/18 11:15 04/25/18 11:15 04/25/18 11:15 - Laboratory Result Diagrams: 04/25/18 12:09 04/25/18 12:09 Laboratory results interpreted by me: 04/25/18 04/25/18 11:12 12:09 WBC 18.0 H Absolute Neutrophils 11.3 H Absolute Lymphocytes 5.5 H Urine Blood SMALL H Ur Leukocyte Esterase LARGE H Discharge - Discharge Clinical Impression: Nausea vomiting and diarrhea Condition: Stable Disposition: HOME, SELF-CARE Additional Instructions: VOMITING: Vomiting (or nausea without vomiting) can be caused by many other different problems. It can mean that something's wrong with the stomach, such as ulcers or inflammation or the intestinal tract, such as appendicitis. But it can also be a symptom of a problem that has nothing to do with the stomach or intestines. Vomiting is common with severe headaches, earaches, tonsillitis, and kidney infections, etc. We see it with pneumonia or heart attacks. Drugs can cause nausea and vomiting. Many abdominal problems cause vomiting; for example, gallstones, kidney stones, pancreatitis, and intestinal obstruction ( blocked bowels). In most cases, curing the vomiting depends on fixing the problem that caused it. For temporary relief, we may use an anti-nausea medicine. For home use, we can prescribe suppositories, chewable pills, pills that dissolve in the mouth, or liquid anti-nausea drugs. If the vomiting seems to be caused by a problem in the stomach, acid-suppressing drugs may be prescribed as well. It's important to avoid dehydration. Sip small amounts of clear liquids ( soft drinks, tea, broth, etc) . Try to take fluids frequently even if you are vomiting to prevent dehydration. Take increasing amounts of fluid and when liquids are being consumed successfully, advance to small amounts of bland food (toast, soups, mashed potatoes, etc.) until you are able to resume a regular diet. Avoid aspirin, tobacco, and alcohol. If the vomiting worsens, if the problem that's making you vomit worsens, or if there's evidence of bleeding in the stomach (such as black, tarry stool, or bloody or black vomit), you should return immediately. Also, return if abdominal pain worsens or becomes localized to one area or you develop high fever. Call your doctor if you aren't improved in 24 hours. DIARRHEA, NON-SPECIFIC: Diarrhea means frequent, watery stools. There are many causes. Any problem that keeps the intestinal tract from absorbing water from the stool can lead to diarrhea. A sudden new diarrhea problem is usually caused by a virus, food sensitivity, toxic bacteria, or drugs. In this case, we expect the problem to go away soon. Testing is done only if you seem seriously ill from the diarrhea. If you have chronic diarrhea, or diarrhea that keeps coming back, we need to find out why. Chronic diarrhea can be due to inflammation of the bowels such as Crohn's disease or ulcerative colitis, food sensitivity such as intolerance to lactose or wheat protein, irritable bowel syndrome, and other problems. If your diarrhea is a significant problem but it's not clear why you have it, we' ll refer you to a specialist for further testing. During an episode of diarrhea, drink small amounts (two to six ounces) of clear liquids (soft drinks, sport drinks, herb teas, broth, etc). Take fluids frequently to prevent dehydration. It's usually not a problem to take mild anti- diarrhea medication such as Kaopectate or Pepto-Bismol. As the diarrhea eases, advance to small amounts of bland food (mashed potato, toast) for 24 hours. Call the physician if blood appears in your vomit or stool, if vomiting lasts longer than 24 hours, if the abdominal pain worsens or becomes localized to one area, if you develop high fever, or if you become lightheaded and weak. ANTINAUSEA MEDICATION: You have been given a medication to suppress nausea and vomiting. This type of medication can be given as a shot, pill, or suppository. It will usually last for many hours. Pills and shots usually last six to eight hours. For the typical illness, only one or two doses of the medication may be necessary. Mild lightheadedness may occur. This type of medicine can cause drowsiness. Do not drive or operate dangerous machinery while under its influence. Do not mix with alcohol. See your doctor at once if you have muscle spasms or tightness, or uncontrollable motions (particularly of the neck, mouth, or jaw). Persistent vomiting or severe lightheadedness should also be evaluated by the physician. FOLLOW-UP CARE: If you have been referred to a physician for follow-up care, call the physician s office for an appointment as you were instructed or within the next two days. If you experience worsening or a significant change in your symptoms, notify the physician immediately or return to the Emergency Department at any time for re-evaluation. Prescriptions: Ondansetron [Zofran Odt 4 mg Tablet] 1 - 2 tab PO Q4H PRN #15 tab.rapdis PRN Reason: For Nausea/Vomiting Forms: Elevated Blood Pressure Referrals: LOUIE RITCHIE MD [ACTIVE STAFF] - Follow up as needed
[2018-04-25 12:13] LABS: APPEARANCE,URINE SLIGHTLY-CLOUDY; BILIRUBIN,URINE NEGATIVE (NEGATIVE); COLOR,URINE YELLOW; GLUCOSE, URINE NEGATIVE (NEGATIVE); KETONES,URINE NEGATIVE (NEGATIVE); LEUKOCYTE ESTERASE,URINE LARGE (NEGATIVE); NITRITE,URINE NEGATIVE (NEGATIVE); PROTEIN,URINE NEGATIVE (NEGATIVE); URINE SPECIFIC GRAVITY 1.005; UROBILINOGEN,URINE NEGATIVE mg/dL (<2.0)
[2018-04-25 12:19] LABS: ABSOLUTE BASOPHILS # (AUTO) 0.2 10^3/uL (0.0-0.2); ABSOLUTE EOSINOPHILS # (AUTO) 0.1 10^3/uL (0.0-0.6); ABSOLUTE LYMPHOCYTES (AUTO) 5.5 10^3/uL (0.5-4.7); ABSOLUTE MONOCYTES (AUTO) 0.9 10^3/uL (0.1-1.4); ABSOLUTE NEUT (AUTO) 11.3 10^3/uL (1.7-8.2); EOSINOPHILS % (AUTO) 0.4 % (0-6); HEMATOCRIT 42.2 % (36.0-47.0); HEMOGLOBIN 14.5 g/dL (12.0-15.5); LYMPHOCYTES % (AUTO) 30.8 % (13-45); MEAN CORPUSCULAR HEMOGLOBIN 29.1 pg (27.0-33.4); MEAN CORPUSCULAR HGB CONC 34.3 g/dL (32.0-36.0); MEAN CORPUSCULAR VOLUME 85 fl (80-97); MONOCYTES % (AUTO) 4.9 % (3-13); PLATELET COUNT 371 10^3/uL (150-450); RED BLOOD COUNT 4.97 10^6/uL (3.72-5.28); RED CELL DISTRIBUTION WIDTH 13.5 % (11.5-14.0); SEGMENTED NEUTROPHILS % (AUTO) 62.9 % (42-78); TOTAL CELLS COUNTED % (AUTO) 100 %
[2018-04-25 12:39] LABS: ALANINE AMINOTRANSFERASE 25 U/L (9-52); ALBUMIN 4.1 g/dL (3.5-5.0); ALKALINE PHOSPHATASE 91 U/L (38-126); ANION GAP 12 (5-19); ASPARTATE AMINO TRANSFERASE 21 U/L (14-36); BILIRUBIN,DIRECT 0.2 mg/dL (0.0-0.4); BILIRUBIN,TOTAL 0.2 mg/dL (0.2-1.3); BLOOD UREA NITROGEN 10 mg/dL (7-20); CALCIUM 9.9 mg/dL (8.4-10.2); CARBON DIOXIDE 27 mmol/L (22-30); CHLORIDE 105 mmol/L (98-107); GLUCOSE 92 mg/dL (75-110); LIPASE 103.9 U/L (23-300); POTASSIUM 4.2 mmol/L (3.6-5.0); SODIUM 143.6 mmol/L (137-145); TOTAL PROTEIN 7.8 g/dL (6.3-8.2)
== END 2018-04-25 13:00 | disposition home or self-care (01) ==
LOC: ER 10:49
DX: R11.2 Nausea with vomiting, unspecified (principal); R19.7 Diarrhea, unspecified; D72.829 Elevated white blood cell count, unspecified; F12.10 Cannabis abuse, uncomplicated; F17.200 Nicotine dependence, unspecified, uncomplicated; Z90.49 Acquired absence of other specified parts of digestive tract; Z88.6 Allergy status to analgesic agent; Z88.5 Allergy status to narcotic agent; Z88.8 Allergy status to other drugs, medicaments and biological substances
CPT/HCPCS: 36415; 80053; 81001; 81025; 83690; 85025; 99284

== ENCOUNTER 2018-07-25 01:46 | Emergency (ER) | payer SELFPAY ==
[2018-07-25] MEDS ORDERED: ALBUTEROL SULFATE 0.083% NEB 2.5 MG/3 ML AMPUL NEB ONE (02:19)
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
[2018-07-25 02:52] LABS: ABSOLUTE BASOPHILS # (AUTO) 0.1 10^3/uL (0.0-0.2); ABSOLUTE EOSINOPHILS # (AUTO) 0.1 10^3/uL (0.0-0.6); ABSOLUTE LYMPHOCYTES (AUTO) 6.7 10^3/uL (0.5-4.7); ABSOLUTE MONOCYTES (AUTO) 0.8 10^3/uL (0.1-1.4); ABSOLUTE NEUT (AUTO) 6.9 10^3/uL (1.7-8.2); BASOPHILS % (AUTO) 0.5 % (0-2); EOSINOPHILS % (AUTO) 0.8 % (0-6); HEMOGLOBIN 13.3 g/dL (12.0-15.5); MEAN CORPUSCULAR HEMOGLOBIN 28.8 pg (27.0-33.4); MEAN CORPUSCULAR HGB CONC 34.2 g/dL (32.0-36.0); MEAN CORPUSCULAR VOLUME 84 fl (80-97); MONOCYTES % (AUTO) 5.7 % (3-13); PLATELET COUNT 342 10^3/uL (150-450); RED BLOOD COUNT 4.63 10^6/uL (3.72-5.28); RED CELL DISTRIBUTION WIDTH 13.7 % (11.5-14.0); TOTAL CELLS COUNTED % (AUTO) 100 %; WHITE BLOOD COUNT 14.6 10^3/uL (4.0-10.5)
--- NOTE | 2018-07-25 03:06 | RADIOLOGY REPORT (SQ) ---
EXAM DESCRIPTION: XR ABDOMEN SUPINE AND ERECT WITH CHEST (ABD ACUTE SERIES) COMPLETED DATE/TME: 07/25/2018 02:19 CLINICAL HISTORY: 43 years, Female, abdominal pain, cough COMPARISON: None. NUMBER OF VIEWS: Four TECHNIQUE: AP view the chest with supine and upright images of the abdomen LIMITATIONS: None. FINDINGS: The lungs are clear. The heart is normal in size. There is no pneumothorax or pleural effusion. There is no acute fracture. There is no intraperitoneal free air. Cholecystectomy clips are present. There are no abnormal calcifications. There are no dilated loops of bowel. There is a moderate amount of stool within the colon. IMPRESSION: No acute cardiopulmonary abnormality. Nonobstructed bowel gas pattern 2010 [employer]- All Rights Reserved
[2018-07-25] MEDS ORDERED: ALBUTEROL SULFATE HFA (90 MCG/PUFF) 8 GM MDI (1 MDI/ER DISP) IH ONE (03:16)
[2018-07-25] MEDS ORDERED: PREDNISONE 20 MG TABLET PO ONE (03:16)
[2018-07-25 03:17] LABS: APPEARANCE,URINE CLEAR; BILIRUBIN,URINE NEGATIVE (NEGATIVE); GLUCOSE, URINE NEGATIVE (NEGATIVE); KETONES,URINE NEGATIVE (NEGATIVE); LEUKOCYTE ESTERASE,URINE NEGATIVE (NEGATIVE); NITRITE,URINE NEGATIVE (NEGATIVE); PROTEIN,URINE NEGATIVE (NEGATIVE); UROBILINOGEN,URINE NEGATIVE mg/dL (<2.0)
[2018-07-25 03:20] LABS: URINE SPECIFIC GRAVITY 1.029
[2018-07-25 03:21] LABS: COLOR,URINE YELLOW
[2018-07-25 03:21] LABS: ALANINE AMINOTRANSFERASE 16 U/L (9-52); ALBUMIN 3.9 g/dL (3.5-5.0); ALKALINE PHOSPHATASE 76 U/L (38-126); ANION GAP 9 (5-19); ASPARTATE AMINO TRANSFERASE 25 U/L (14-36); BILIRUBIN,DIRECT 0.4 mg/dL (0.0-0.4); BILIRUBIN,TOTAL 0.4 mg/dL (0.2-1.3); BLOOD UREA NITROGEN 13 mg/dL (7-20); CALCIUM 9.6 mg/dL (8.4-10.2); CARBON DIOXIDE 21 mmol/L (22-30); CHLORIDE 108 mmol/L (98-107); GLUCOSE 170 mg/dL (75-110); POTASSIUM 3.7 mmol/L (3.6-5.0); SODIUM 138.4 mmol/L (137-145); TOTAL PROTEIN 7.4 g/dL (6.3-8.2)
[2018-07-25] MEDS ORDERED: BENZONATATE 100 MG CAPSULE PO ONE (04:13)
[2018-07-25 04:31] VITALS: BP 112/69
[2018-07-26 07:42] LABS: HEPATITIS A AB IGM Negative (Negative); HEPATITIS B CORE AB IGM Negative (Negative); HEPATITS B SURFACE ANTIGEN Negative (Negative)
[2018-07-26 13:39] LABS: HEPATITIS C VIRUS ANTIBODY 0.2 s/co ratio (0.0-0.9)
== END 2018-07-25 04:31 | disposition home or self-care (01) ==
LOC: ER 01:46
DX: J40 Bronchitis, not specified as acute or chronic (principal); R32 Unspecified urinary incontinence; R10.84 Generalized abdominal pain; R14.0 Abdominal distension (gaseous); R05 Cough; R09.81 Nasal congestion; R06.2 Wheezing; R11.0 Nausea; F17.200 Nicotine dependence, unspecified, uncomplicated; Z88.6 Allergy status to analgesic agent; Z88.5 Allergy status to narcotic agent; Z88.8 Allergy status to other drugs, medicaments and biological substances
CPT/HCPCS: 94640; 99284; 36415; 84703; 85025; 80053; 81001; 80074; 74022; J7512; J3490

== ENCOUNTER 2019-07-30 | Emergency (ER) | payer SELFPAY ==
[2019-07-30 00:29] VITALS: BP 138/89
--- NOTE | 2019-07-30 01:13 | RADIOLOGY REPORT (SQ) ---
EXAM DESCRIPTION: XR HUMERUS, XR FOREARM 2 VIEWS COMPLETED DATE/TME: 07/30/2019 00:45 CLINICAL HISTORY: 44 years, Female, pain from shoulder to wrist, no known injury COMPARISON: None. NUMBER OF VIEWS: TECHNIQUE: LIMITATIONS: None. FINDINGS: 2 views of the right humerus and 2 views of the right forearm were obtained. No fracture or dislocation. Mineralization of bone appears normal. No evidence of elbow joint effusion. IMPRESSION: No radiographic abnormality. copyright 2010 [employer]- All Rights Reserved
--- NOTE | 2019-07-30 01:13 | RADIOLOGY REPORT (SQ) ---
EXAM DESCRIPTION: XR HUMERUS, XR FOREARM 2 VIEWS COMPLETED DATE/TME: 07/30/2019 00:45 CLINICAL HISTORY: 44 years, Female, pain from shoulder to wrist, no known injury COMPARISON: None. NUMBER OF VIEWS: TECHNIQUE: LIMITATIONS: None. FINDINGS: 2 views of the right humerus and 2 views of the right forearm were obtained. No fracture or dislocation. Mineralization of bone appears normal. No evidence of elbow joint effusion. IMPRESSION: No radiographic abnormality. copyright 2010 [employer]- All Rights Reserved
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
[2019-07-30] MEDS ORDERED: CYCLOBENZAPRINE HCL 10 MG TABLET PO ONE (01:49)
== END 2019-07-30 01:56 | disposition home or self-care (01) ==
LOC: ER
DX: M79.601 Pain in right arm (principal); F17.200 Nicotine dependence, unspecified, uncomplicated; Z88.8 Allergy status to other drugs, medicaments and biological substances
CPT/HCPCS: 99283

== ENCOUNTER 2020-04-04 17:48 | Emergency (ER) | payer SELFPAY ==
[2020-04-04 17:56] VITALS: BP 139/98
[2020-04-04] MEDS ORDERED: CEFTRIAXONE INJ 250 MG VIAL IM ONE (20:46)
[2020-04-04] MEDS ORDERED: AZITHROMYCIN 250 MG TABLET PO ONE (20:46)
[2020-04-04] MEDS ORDERED: HEPATITIS B VIRUS VACCINE-PF 1 ML SYR IM ONE (20:46)
[2020-04-04] MEDS ORDERED: PROMETHAZINE HCL 25 MG TABLET PO ONE (20:46)
[2020-04-04] MEDS ORDERED: LIDOCAINE 1% INJ-PF (10 MG/ML) 30 ML SDV INJ ONE (20:46)
[2020-04-04] MEDS ORDERED: METRONIDAZOLE 500 MG TABLET PO ONE (20:46)
[2020-04-04] MEDS ORDERED: TETANUS/DIPHTHERIA TOX-ADULT 0.5 ML SYR (>=7YO) IM ONE (20:46)
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
[2020-04-04 21:59] LABS: ABSOLUTE EOSINOPHILS # (AUTO) 0.1 10^3/uL (0.0-0.6); ABSOLUTE LYMPHOCYTES (AUTO) 5.6 10^3/uL (0.5-4.7); ABSOLUTE MONOCYTES (AUTO) 0.6 10^3/uL (0.1-1.4); ABSOLUTE NEUT (AUTO) 6.4 10^3/uL (1.7-8.2); BASOPHILS % (AUTO) 0.4 % (0-2); EOSINOPHILS % (AUTO) 0.9 % (0-6); HEMATOCRIT 39.2 % (36.0-47.0); HEMOGLOBIN 13.4 g/dL (12.0-15.5); LYMPHOCYTES % (AUTO) 43.9 % (13-45); MEAN CORPUSCULAR HEMOGLOBIN 28.7 pg (27.0-33.4); MEAN CORPUSCULAR HGB CONC 34.1 g/dL (32.0-36.0); MEAN CORPUSCULAR VOLUME 84 fl (80-97); MONOCYTES % (AUTO) 4.5 % (3-13); PLATELET COUNT 373 10^3/uL (150-450); RED BLOOD COUNT 4.67 10^6/uL (3.72-5.28); RED CELL DISTRIBUTION WIDTH 13.3 % (11.5-14.0); SEGMENTED NEUTROPHILS % (AUTO) 50.3 % (42-78); TOTAL CELLS COUNTED % (AUTO) 100 %; WHITE BLOOD COUNT 12.8 10^3/uL (4.0-10.5)
[2020-04-04 22:10] LABS: ALBUMIN 4.1 g/dL (3.5-5.0); ALKALINE PHOSPHATASE 100 U/L (38-126); ANION GAP 5 (5-19); ASPARTATE AMINO TRANSFERASE 115 U/L (14-36); BILIRUBIN,TOTAL 0.5 mg/dL (0.2-1.3); BLOOD UREA NITROGEN 5 mg/dL (7-20); CALCIUM 9.7 mg/dL (8.4-10.2); CARBON DIOXIDE 26 mmol/L (22-30); CHLORIDE 105 mmol/L (98-107); GLUCOSE 167 mg/dL (75-110); POTASSIUM 3.7 mmol/L (3.6-5.0); TOTAL PROTEIN 7.3 g/dL (6.3-8.2)
[2020-04-06 07:37] LABS: HEPATITS B SURFACE ANTIGEN Negative (Negative)
[2020-04-06 11:54] LABS: HEPATITIS C VIRUS ANTIBODY 0.3 s/co ratio (0.0-0.9)
== END 2020-04-04 22:29 | disposition left against medical advice (07) ==
LOC: ER 17:48
DX: Z53.20 Procedure and treatment not carried out because of patient's decision for unspecified reasons (principal); T76.21XA Adult sexual abuse, suspected, initial encounter; Z88.8 Allergy status to other drugs, medicaments and biological substances; F17.200 Nicotine dependence, unspecified, uncomplicated
CPT/HCPCS: 36415; 80053; 80074; 81025; 85025; 86592; 86701; 99285

== ENCOUNTER 2020-07-22 13:41 | Emergency (ER) | payer SELFPAY ==
[2020-07-22 13:50] VITALS: BP 119/75
--- NOTE | 2020-07-22 14:32 | ER Document Report ---
ED Medical Screen (RME) - General Chief Complaint: Shortness Of Breath Stated Complaint: COUGH,FEVER,SHORT OF BREATH Time Seen by Provider: 07/22/20 14:27 Mode of Arrival: Ambulatory Information source: Patient Notes: 45-year-old female presents to ED for complaint of cough congestion's fevers up to 104.3 for the last 3 days. She states last night it was 104.3. She states she has taken Tylenol today for her fever. She is also been sent onto the air conditioner. She is very short of breath. She states she has body aches all over. We will get blood urine strep flu chest x-ray and cover test. I have greeted and performed a rapid initial assessment of this patient. A comprehensive ED assessment and evaluation of the patient, analysis of test results and completion of medical decision making process will be conducted by an additional ED providers. TRAVEL OUTSIDE OF THE [place] IN LAST 30 DAYS: No - Related Data Allergies/Adverse Reactions: aspirin [Aspirin] Allergy (Verified 07/25/18 02:32) hydrocodone bitartrate [From Vicodin] Allergy (Verified 07/25/18 02:32) ibuprofen Allergy (Verified 04/04/20 22:26) ketorolac [From Toradol] Allergy (Verified 04/04/20 22:26) risperidone [From Risperdal] Allergy (Verified 07/25/18 02:32) Past Medical History Neurological Medical History: Reports: Hx Migraine Renal/ Medical History: Denies: Hx Peritoneal Dialysis GI Medical History: Denies: Hx Hepatitis, Hx Hiatal Hernia, Hx Ulcer Psychiatric Medical History: Reports: Hx Anxiety, Hx Attention Deficit Hyperactivity Disorder, Hx Bipolar Disorder, Hx Depression Infectious Medical History: Denies: Hx Hepatitis Past Surgical History: Reports: Hx Appendectomy, Hx Cholecystectomy, Hx Gynecologic Surgery - Laparoscopy x2. Denies: Hx Mastectomy, Hx Open Heart Surgery, Hx Pacemaker - Immunizations Immunizations up to date: Yes Hx Diphtheria, Pertussis, Tetanus Vaccination: Yes - unk Physical Exam - Vital signs Vitals: Temp Pulse Resp BP Pulse Ox 99.2 F 104 H 16 119/75 98 07/22/20 13:49 07/22/20 13:49 07/22/20 13:49 07/22/20 13:49 07/22/20 13:49 Course - Vital Signs Vital signs: Temp Pulse Resp BP Pulse Ox 99.2 F 104 H 16 119/75 98 07/22/20 13:49 07/22/20 13:49 07/22/20 13:49 07/22/20 13:49 07/22/20 13:49
[2020-07-22] MEDS ORDERED: ONDANSETRON 4 MG TAB.RAPDIS PO ONE (15:24)
--- NOTE | 2020-07-22 15:35 | ER Document Report ---
ED Flu Like - General Chief Complaint: Flu Symptoms Stated Complaint: COUGH,FEVER,SHORT OF BREATH Time Seen by Provider: 07/22/20 14:27 Mode of Arrival: Ambulatory Notes: CHIEF COMPLAINT: Cough shortness of breath fever HPI: 45-year-old female who smokes presenting with cough shortness of breath and fever over the last 3 days. Fever up to 104 at home per patient. States that she coughs hard enough that she throws up. Does not have random vomiting. Denies abdominal pain. ROS: See HPI - all other systems were reviewed and are otherwise negative Constitutional: no fever Eyes: no drainage, no blurred vision ENT: no runny nose, no sore throat Cardiovascular: no chest pain Resp: + SOB, + cough GI: Positive posttussive vomiting, no diarrhea, no abdominal pain : no dysuria Integumentary: no rash Allergy: no hives Musculoskeletal: no extremity pain or swelling Neurological: no numbness/tingling, no weakness MEDICATIONS: I agree with the patient medications as charted by the RN. ALLERGIES: I agree with the allergies as charted by the RN. PAST MEDICAL HISTORY/PAST SURGICAL HISTORY: Reviewed and agree as charted by RN. SOCIAL HISTORY: Reviewed and agree as charted by RN. FAMILY HISTORY: No significant familial comorbid conditions directly related to patient complaint EXAM: Reviewed vital signs as charted by RN. CONSTITUTIONAL: Alert and oriented and responds appropriately to questions. Well-appearing; well-nourished HEAD: Normocephalic; atraumatic EYES: PERRL; Conjunctivae clear, sclerae non-icteric ENT: normal nose; no rhinorrhea; moist mucous membranes; pharynx without lesions noted, no uvula edema or deviation, no tonsillar hypertrophy, phonation normal NECK: Supple without meningismus; non-tender; no cervical lymphadenopathy, no masses CARD: RRR; no murmurs, no clicks, no rubs, no gallops; symmetric distal pulses RESP: Normal chest excursion without splinting or tachypnea; breath sounds clear and equal bilaterally; no wheezes, no rhonchi, no rales, pulse oximetry 98% on room air not hypoxic ABD/GI: Normal bowel sounds; non-distended; soft, non-tender, no rebound, no guarding; no palpable organomegaly or masses. BACK: The back appears normal and is non-tender to palpation, there is no CVA tenderness EXT: Normal ROM in all joints; non-tender to palpation; no cyanosis, no effusions, no edema SKIN: Normal color for age and race; warm; dry; good turgor; no acute lesions noted NEURO: Moves all extremities equally; Motor and sensory function intact PSYCH: The patient's mood and manner are appropriate. Grooming and personal hygiene are appropriate. MDM: 45-year-old female who appears older than stated age presenting for cough with fever shortness of breath over the last 3 days. She is a smoker. Chest x- ray to my review does not reveal evidence of infiltrate. She is not hypoxic. She is not tachypneic or significantly tachycardic. Does seem to be having posttussive emesis. Initial orders placed via triage process include COVID, influenza, urinalysis. We will also obtain blood culture. TRAVEL OUTSIDE OF THE [place] IN LAST 30 DAYS: No - Related Data Allergies/Adverse Reactions: aspirin [Aspirin] Allergy (Verified 07/25/18 02:32) hydrocodone bitartrate [From Vicodin] Allergy (Verified 07/25/18 02:32) ibuprofen Allergy (Verified 04/04/20 22:26) ketorolac [From Toradol] Allergy (Verified 04/04/20 22:26) risperidone [From Risperdal] Allergy (Verified 07/25/18 02:32) Past Medical History - General Information source: Patient - Social History Smoking Status: Current Every Day Smoker Chew tobacco use (# tins/day): No Frequency of alcohol use: None Drug Abuse: Marijuana Family History: Reviewed & Not Pertinent, Hypertension Neurological Medical History: Reports: Hx Migraine Renal/ Medical History: Denies: Hx Peritoneal Dialysis GI Medical History: Denies: Hx Hepatitis, Hx Hiatal Hernia, Hx Ulcer Psychiatric Medical History: Reports: Hx Anxiety, Hx Attention Deficit Hyperactivity Disorder, Hx Bipolar Disorder, Hx Depression Infectious Medical History: Denies: Hx Hepatitis Past Surgical History: Reports: Hx Appendectomy, Hx Cholecystectomy, Hx Gynecologic Surgery - Laparoscopy x2. Denies: Hx Mastectomy, Hx Open Heart Surgery, Hx Pacemaker - Immunizations Immunizations up to date: Yes Hx Diphtheria, Pertussis, Tetanus Vaccination: Yes - unk Physical Exam - Vital signs Vitals: Temp Pulse Resp BP Pulse Ox 99.2 F 104 H 16 119/75 98 07/22/20 13:49 07/22/20 13:49 07/22/20 13:49 07/22/20 13:49 07/22/20 13:49 Course - Re-evaluation Re-evalutation: 07/22/20 17:09 Patient in no significant distress at this time. Respirating with no difficulty. Patient appears to have a mild UTI states she gets these frequently. Patient likely has a lower respiratory tract infection given her smoking history of although chest x-ray is negative for pneumonia. Will place patient on doxycycline, albuterol, follow-up PCP. She will be a person under investigation for COVID-19 at this time pending lab results - Vital Signs Vital signs: Temp Pulse Resp BP Pulse Ox 99.2 F 104 H 16 119/75 98 07/22/20 14:27 07/22/20 13:49 07/22/20 13:49 07/22/20 13:49 07/22/20 13:49 - Laboratory Laboratory results interpreted by me: 07/22/20 16:05 Urine Protein 100 H Urine Glucose (UA) 50 H Urine Blood SMALL H Ur Leukocyte Esterase SMALL H Discharge - Discharge Clinical Impression: Lower respiratory infection UTI (urinary tract infection) Qualifiers: Urinary tract infection type: acute cystitis Hematuria presence: without h ematuria Qualified Code(s): N30.00 - Acute cystitis without hematuria Condition: Stable Disposition: HOME, SELF-CARE Additional Instructions: 1. take the medications as prescribed 2. if you were prescribed an Albuterol inhaler, use it as instructed, 2 puffs every 4 hours as needed for cough/wheezing 3. call your primary care provider as soon as possible to schedule recheck appt. in the office. 4. return to the ED for any worsening condition, shortness of breath or continued fever that does not resolve with Motrin/Tylenol Prescriptions: Doxycycline Monohydrate 100 mg PO BID #20 capsule Guaifenesin/Dextromethorphan [Mucinex Dm ER 600-30 mg Tablet] 1 each PO BID #20 tab.er.12h Albuterol Sulfate [Proair HFA Inhalation Aerosol 8.5 gm MDI] 2 puff IH Q4H PRN #1 mdi PRN Reason: Referrals: ANN OREILLY MD [[facility]ED STAFF] - Follow up as needed
--- NOTE | 2020-07-22 15:52 | RADIOLOGY REPORT (SQ) ---
EXAM DESCRIPTION: CHEST SINGLE VIEW IMAGES COMPLETED DATE/TIME: 07/22/2020 3:41 pm REASON FOR STUDY: Your breath cough fever. COMPARISON: 03/26/2016 EXAM PARAMETERS: NUMBER OF VIEWS: One view. TECHNIQUE: Single frontal radiographic view of the chest acquired. RADIATION DOSE: NA LIMITATIONS: None. FINDINGS: LUNGS AND PLEURA: No opacities, masses or pneumothorax. No pleural effusion. MEDIASTINUM AND HILAR STRUCTURES: No masses. Contour normal. HEART AND VASCULAR STRUCTURES: Heart normal in size. Normal vasculature. BONES: No acute findings. HARDWARE: None in the chest. OTHER: No other significant finding. IMPRESSION: NO ACUTE RADIOGRAPHIC FINDING IN THE CHEST. TECHNICAL DOCUMENTATION: JOB ID: [id number] 2010 [email or web address] All Rights Reserved Reading location - IP/workstation name: [email or web address]
[2020-07-22 16:39] LABS: APPEARANCE,URINE SLIGHTLY-CLOUDY; BILIRUBIN,URINE NEGATIVE (NEGATIVE); COLOR,URINE YELLOW; GLUCOSE, URINE 50 mg/dL (NEGATIVE); KETONES,URINE NEGATIVE (NEGATIVE); LEUKOCYTE ESTERASE,URINE SMALL (NEGATIVE); NITRITE,URINE NEGATIVE (NEGATIVE); PROTEIN,URINE 100 mg/dL (NEGATIVE); URINE SPECIFIC GRAVITY 1.018; UROBILINOGEN,URINE NEGATIVE mg/dL (<2.0)
[2020-07-22 16:52] LABS: A TYPE INFLUENZA AG NEGATIVE (NEGATIVE)
[2020-07-22 16:53] LABS: B INFLUENZA AG NEGATIVE (NEGATIVE)
[2020-07-22] MEDS ORDERED: DOXYCYCLINE HYCLATE 100 MG TABLET PO ONE (17:10)
== END 2020-07-22 17:53 | disposition home or self-care (01) ==
LOC: ER 13:41
DX: J06.9 Acute upper respiratory infection, unspecified (principal); N30.00 Acute cystitis without hematuria; F17.200 Nicotine dependence, unspecified, uncomplicated; I10 Essential (primary) hypertension; Z20.828 Contact with and (suspected) exposure to other viral communicable diseases
CPT/HCPCS: 99284; 36415; 87040; 87086; 87635; 87088; 81001; 87804; 71045; S0119; C9803; 87186

== ENCOUNTER 2020-08-29 20:31 | Emergency (ER) | payer SELFPAY ==
[2020-08-29 21:51] VITALS: BP 132/80
[2020-08-29] MEDS ORDERED: HYDROCODONE/ACETAMINOPHEN 5-325 MG TABLET PO ONE (21:57)
--- NOTE | 2020-08-29 21:59 | ER Document Report ---
ED Medical Screen (RME) - General Chief Complaint: Leg Swelling Stated Complaint: LEG SWELLING Time Seen by Provider: 08/29/20 21:52 Notes: Patient is a 45-year-old male who presents emergency department with chief complaint of bilateral lower extremity swelling. States that she has had more on the left than on the right. Patient is a smoker. States that bilateral feet hurt. States that when she walks upstairs, she can get short of breath. Family has history of congestive heart failure. She denies any chest pain. Exam: Edema noted to bilateral lower extremities with left greater than right. I have greeted and performed a rapid initial assessment of this patient. A comprehensive ED assessment and evaluation of the patient, analysis of test results and completion of medical decision making process will be conducted by an additional ED providers. TRAVEL OUTSIDE OF THE [place] IN LAST 30 DAYS: No - Related Data Allergies/Adverse Reactions: aspirin [Aspirin] Allergy (Verified 07/25/18 02:32) hydrocodone bitartrate [From Vicodin] Allergy (Verified 07/25/18 02:32) ibuprofen Allergy (Verified 04/04/20 22:26) ketorolac [From Toradol] Allergy (Verified 04/04/20 22:26) risperidone [From Risperdal] Allergy (Verified 07/25/18 02:32) Past Medical History Neurological Medical History: Reports: Hx Migraine Renal/ Medical History: Denies: Hx Peritoneal Dialysis GI Medical History: Denies: Hx Hepatitis, Hx Hiatal Hernia, Hx Ulcer Psychiatric Medical History: Reports: Hx Anxiety, Hx Attention Deficit Hyperactivity Disorder, Hx Bipolar Disorder, Hx Depression Infectious Medical History: Denies: Hx Hepatitis Past Surgical History: Reports: Hx Appendectomy, Hx Cholecystectomy, Hx Gynecologic Surgery - Laparoscopy x2. Denies: Hx Mastectomy, Hx Open Heart Surgery, Hx Pacemaker - Immunizations Immunizations up to date: Yes Hx Diphtheria, Pertussis, Tetanus Vaccination: Yes - unk Physical Exam - Vital signs Vitals: Temp Pulse Resp BP Pulse Ox 98.4 F 88 13 132/80 H 98 08/29/20 21:50 08/29/20 21:50 08/29/20 21:50 08/29/20 21:50 08/29/20 21:50 Course - Vital Signs Vital signs: Temp Pulse Resp BP Pulse Ox 98.4 F 88 13 132/80 H 98 08/29/20 21:50 08/29/20 21:50 08/29/20 21:50 08/29/20 21:50 08/29/20 21:50
[2020-08-29 22:42] LABS: HEMATOCRIT 38.1 % (36.0-47.0); HEMOGLOBIN 12.8 g/dL (12.0-15.5); MEAN CORPUSCULAR HEMOGLOBIN 28.9 pg (27.0-33.4); MEAN CORPUSCULAR HGB CONC 33.6 g/dL (32.0-36.0); MEAN CORPUSCULAR VOLUME 86 fl (80-97); PLATELET COUNT 343 10^3/uL (150-450); RED BLOOD COUNT 4.43 10^6/uL (3.72-5.28); RED CELL DISTRIBUTION WIDTH 14.3 % (11.5-14.0); WHITE BLOOD COUNT 12.6 10^3/uL (4.0-10.5)
--- NOTE | 2020-08-29 22:58 | RADIOLOGY REPORT (SQ) ---
CLINICAL INDICATION: SOB when walking up stairs. TECHNIQUE: PA and lateral views were obtained of the chest COMPARISON: July 22, 2020. FINDINGS: The cardiomediastinal silhouette is normal. The lungs are grossly clear. No evidence of effusion or pneumothorax. Mild chronic change. . IMPRESSION: No evidence of active intrathoracic disease .
[2020-08-29 23:01] LABS: ALBUMIN 3.9 g/dL (3.5-5.0); ALKALINE PHOSPHATASE 104 U/L (38-126); ANION GAP 12 (5-19); ASPARTATE AMINO TRANSFERASE 24 U/L (14-36); BILIRUBIN,DIRECT 0.1 mg/dL (0.0-0.4); BILIRUBIN,TOTAL 0.2 mg/dL (0.2-1.3); BLOOD UREA NITROGEN 7 mg/dL (7-20); CALCIUM 9.8 mg/dL (8.4-10.2); CARBON DIOXIDE 25 mmol/L (22-30); CHLORIDE 100 mmol/L (98-107); GLUCOSE 204 mg/dL (75-110); POTASSIUM 4.1 mmol/L (3.6-5.0)
--- NOTE | 2020-08-29 23:16 | RADIOLOGY REPORT (SQ) ---
EXAM DESCRIPTION: VENOUS BILATERAL LOWER RadLex: US EXTREMITY VEINS BILATERAL CLINICAL HISTORY: 45 years Female; BLE swelling TECHNIQUE: Multiple grayscale sonographic images of both legs were obtained utilizing a high-frequency linear array transducer supplemented with color Doppler, compression and augmentation techniques. COMPARISON: None. FINDINGS: Right leg veins: Common femoral: normal Greater saphenous: normal upper Superficial femoral: normal mid Superficial femoral: normal lower Superficial femoral: normal Popliteal: normal Posterior Tibial: normal Left leg veins: Common femoral: normal Greater saphenous: normal upper Superficial femoral: normal mid Superficial femoral: normal lower Superficial femoral: normal Popliteal: normal Posterior Tibial: normal IMPRESSION: 1. No sonographic evidence for lower extremity deep venous thrombosis in either leg.
[2020-08-29 23:22] LABS: ABSOLUTE LYMPHOCYTES# (MANUAL) 5.4 10^3/uL (0.5-4.7); ABSOLUTE MONOCYTES # (MANUAL) 0.9 10^3/uL (0.1-1.4); ANISOCYTOSIS SLIGHT; BASOPHILS % (MANUAL) 0 % (0-2); EOSINOPHILS % (MANUAL) 1 % (0-6); LYMPHOCYTES % (MANUAL) 43 % (13-45); MONOCYTES % (MANUAL) 7 % (3-13); SEGMENTED NEUTROPHILS % (MAN) 49 % (42-78); TOTAL CELLS COUNTED 100
[2020-08-29 23:23] LABS: PLATELET COMMENT ADEQUATE
== END 2020-08-30 01:30 | disposition left against medical advice (07) ==
LOC: ER 20:31
DX: R60.0 Localized edema (principal); R06.02 Shortness of breath; F17.200 Nicotine dependence, unspecified, uncomplicated; Z88.8 Allergy status to other drugs, medicaments and biological substances; Z88.6 Allergy status to analgesic agent; Z88.5 Allergy status to narcotic agent; Z53.20 Procedure and treatment not carried out because of patient's decision for unspecified reasons
CPT/HCPCS: 36415; 71046; 80053; 83880; 85025; 93970; 99281; 99285